=== PATIENT | female | born 1955 | race Hispanic/Latino ===

== ENCOUNTER 2017-05-16 14:34 | Emergency (ER) | payer SELFPAY ==
[2017-05-16 14:44] VITALS: BMI 27.4
[2017-05-16 14:52] VITALS: BP 156/75; PULSE 82; RESP 18; TEMP 99; O2SAT 94
[2017-05-16] MEDS ORDERED: Sodium Chloride 0.9% 1,000 ML IV STA (15:00)
[2017-05-16 15:15] LABS: BASO # 0.01 K/mm3 (0.0-2.0); BASO % 0.1 % (0.0-3.0); EOS % 0.2 % (1.5-5.0); GRAN # 6.35 (1.4-6.5); GRAN % 66.2 % (50.0-68.0); HEMATOCRIT 39.9 % (36.0-48.0); LYMPH # 2.5 (1.2-3.4); LYMPH % 26.5 % (22.0-35.0); MEAN CELL VOLUME 92.4 fl (80.0-105.0); MEAN CORPUSCULAR HEMOGLOBIN 29.6 pg (25.0-35.0); MEAN CORPUSCULAR HGB CONC 32.1 g/dl (31.0-37.0); MEAN PLATELET VOLUME 9.8 fl (7.0-11.0); MONO # 0.7 (0.1-0.6); RED CELL DISTRIBUTION WIDTH 14.1 % (11.5-14.5); WHITE BLOOD COUNT 9.6 10^3/ul (4.5-11.0)
[2017-05-16 15:20] LABS: ALKALINE PHOSPHATASE 94 U/L (38-126); ALT/SGPT 39 U/L (7-56); AST/SGOT 30 U/L (14-36); BILIRUBIN,TOTAL 1.3 mg/dL (0.2-1.3); BLOOD UREA NITROGEN 11 mg/dL (7-21); CARBON DIOXIDE 25 mmol/L (21-33); CHLORIDE 97 mmol/L (98-107); GFR AFRICAN-AMERICAN > 60; GLUCOSE,RANDOM 101 mg/dL (70-110); POTASSIUM 4.5 mmol/L (3.6-5.0); SODIUM 136 mmol/L (132-148); TOTAL PROTEIN 8.4 g/dL (5.8-8.3)
--- NOTE | 2017-05-16 15:20 | ED PDOC ---
Arrival/HPI - General Chief Complaint: GI Problem Time Seen by Provider: 05/16/17 14:55 Historian: Patient, Family - History of Present Illness Narrative History of Present Illness (Text): 05/16/17 14:56 A 62 year old female smoker, whose past medical history includes premature ventricular contractions, hypertension, pneumonia, and gallbladder removal, presents to the emergency department with complaints of being sick for 9 days. The patient states she has had diarrhea, vomiting, congestion, cough, congestion with green sputum, fever, and appetite changes, which began 9 days ago after sick contact with granddaughter. The patient and her family report that these same symptoms have circulated through ever member of the house hold. The patient states her fever has been measured from 101-102. The patient's diarrhea comes with abdominal pain and gas pain. The patient admits to being seen before and has been on a Z-pack, but has not had any relief. The patient denies any bloody stools, shortness of breath, dysuria, or any other complaints at this time. Time/Duration: > week (x 9 days ) Symptom Course: Unchanged Quality: Cramping, Gas Like Activities at Onset: Light Context: Home Past Medical History - Provider Review Nursing Documentation Reviewed: Yes - Infectious Disease Hx of Infectious Diseases: None - Tetanus Immunization Tetanus Immunization: Unknown - Cardiac Hx Cardiac Arrhythmia: Yes (PVC) - HEENT Hx Cataracts: Yes (cataract sx) - Psychiatric Hx Depression: No Hx Emotional Abuse: No Hx Physical Abuse: No Hx Substance Use: No - Surgical History Hx Cataract Extraction: Yes - Anesthesia Hx Anesthesia: Yes Hx Anesthesia Reactions: No Hx Malignant Hyperthermia: No - Suicidal Assessment Feels Threatened In Home Enviroment: No Family/Social History - Physician Review Nursing Documentation Reviewed: Yes Family/Social History: No Known Family HX, Unknown Family HX Smoking Status: Light Smoker < 10 Cigarettes Daily Hx Alcohol Use: No Hx Substance Use: No Allergies/Home Meds Allergies/Adverse Reactions: Allergies No Known Allergies Allergy (Verified 06/29/13 07:52) Home Medications: Home Meds Medication Instructions Recorded Confirmed Atenolol [Tenormin] 1 tab PO BID 06/29/13 05/16/17 Verapamil [Calan Tab] 1 tab PO BID 05/16/17 05/16/17 Review of Systems - Physician Review All systems were reviewed & negative as marked: Yes - Review of Systems Constitutional: Fevers Respiratory: Cough, Sputum. absent: SOB Gastrointestinal: Abdominal Pain, Diarrhea, Vomiting, Appetite Changes. absent : Other (bloody stool ) Genitourinary Female: absent: Dysuria Physical Exam Vital Signs Reviewed: Yes Vital Signs Temp Pulse Resp BP Pulse Ox 05/16/17 14:49 99.0 F 82 18 156/75 H 94 L Temperature: Afebrile Blood Pressure: Hypertensive Pulse: Regular Respiratory Rate: Apneic Appearance: Positive for: Well-Appearing, Non-Toxic, Comfortable Pain Distress: None Mental Status: Positive for: Alert and Oriented X 3 - Systems Exam Head: Present: Atraumatic, Normocephalic Pupils: Present: PERRL Extroacular Muscles: Present: EOMI Conjunctiva: Present: Normal Mouth: Present: Moist Mucous Membranes Neck: Present: Normal Range of Motion Respiratory/Chest: Present: Clear to Auscultation, Good Air Exchange. No: Respiratory Distress, Accessory Muscle Use Cardiovascular: Present: Regular Rate and Rhythm, Normal S1, S2. No: Murmurs Abdomen: Present: Normal Bowel Sounds. No: Tenderness, Distention, Peritoneal Signs Back: Present: Normal Inspection Upper Extremity: Present: Normal Inspection. No: Cyanosis, Edema Lower Extremity: Present: Edema, Other (varicose veins) Neurological: Present: GCS=15, CN II-XII Intact, Speech Normal Skin: Present: Warm, Dry, Normal Color. No: Rashes Psychiatric: Present: Alert, Oriented x 3, Normal Insight, Normal Concentration Medical Decision Making ED Course and Treatment: 05/16/17 15:00 Impression: A 62 year old female with vomiting and diarrhea. Differential Diagnosis included but are not limited to: Plan: -- Labs -- Chest X-ray -- Pepcid, IV fluids -- Reassess and disposition Progress Notes: - Lab Interpretations Lab Results: 05/16/17 15:00 05/16/17 15:00 Lab Results 05/16/17 15:00: Sodium 136, Potassium 4.5, Chloride 97 L, Carbon Dioxide 25, Anion Gap 19, BUN 11, Creatinine 0.6 L, Est GFR ( Amer) > 60, Est GFR ( Non-Af Amer) > 60, Random Glucose 101, Calcium 10.0, Total Bilirubin 1.3, AST 30 , ALT 39, Alkaline Phosphatase 94, Total Protein 8.4 H, Albumin 4.4, Globulin 4.0, Albumin/Globulin Ratio 1.1 05/16/17 15:00: WBC 9.6, RBC 4.32, Hgb 12.8, Hct 39.9, MCV 92.4, MCH 29.6, MCHC 32.1, RDW 14.1, Plt Count 379, MPV 9.8, Gran % 66.2, Lymph % (Auto) 26.5, [place] % (Auto) 7.0 H, Eos % (Auto) 0.2 L, Baso % (Auto) 0.1, Gran # 6.35, Lymph # 2.5 , [place] # 0.7 H, Eos # 0.0, Baso # 0.01 - RAD Interpretation Narrative RAD Interpretations (Text): 05/16/17 15:55 Adenopathy and questionable mass. Need for follow up with PMD and consideration for further evaluation including consideration of CT scan discussed and importance emphasized with patient and all family members present. All verbalize and confirm understanding. 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 - Medication Orders Current Medication Orders: Sodium Chloride (Sodium Chloride 0.9%) 1,000 mls @ 1,000 mls/hr IV .Q1H STA Stop: 05/16/17 15:59 Last Admin: 05/16/17 15:09 Dose: 1,000 mls/hr eMAR Start Stop Document 05/16/17 15:09 TA (Rec: 05/16/17 15:09 TA [id number]) Intravenous Solution Start Date 05/16/17 Start Time 15:09 Discontinued Medications Famotidine (Pepcid) 20 mg IVP STAT STA Stop: 05/16/17 15:01 Last Admin: 05/16/17 15:11 Dose: 20 mg IVP Administration Document 05/16/17 15:11 TA (Rec: 05/16/17 15:11 TA [id number]) Charges for Administration # of IVP Administrations 1 - Scribe Statement The provider has reviewed the documentation as recorded by the Martaibmyla Cortez Provider Scribe Attestation: All medical record entries made by the Scribe were at my direction and personally dictated by me. I have reviewed the chart and agree that the record accurately reflects my personal performance of the history, physical exam, medical decision making, and the department course for this patient. I have also personally directed, reviewed, and agree with the discharge instructions and disposition. Disposition/Present on Arrival - Present on Arrival Any Indicators Present on Arrival: No History of DVT/PE: No History of Uncontrolled Diabetes: No Urinary Catheter: No History of Decub. Ulcer: No History Surgical Site Infection Following: None - Disposition Have Diagnosis and Disposition been Completed?: Yes Diagnosis: Gastroenteritis, Cough present for greater than 3 weeks, Hilar adenopathy Disposition: HOME/ ROUTINE Disposition Time: 16:00 Patient Problems: Current Active Problems Problem Status Onset Cough present for greater than 3 weeks Acute Gastroenteritis Acute Hilar adenopathy Acute Condition: STABLE Additional Instructions: Must follow up with your doctor for further evaluation of chest x-ray findings. Consider pulmonary evaluation including CT scan to further define x-ray findings. Prescriptions: Promethazine DM [Phenergan DM Syrup] 10 ml PO TID PRN #120 dose PRN Reason: Cough Referrals: Pascual Stoll MD [Primary Care Provider] - Follow up with primary Forms: [employer] (Telugu)
[2017-05-16 15:21] LABS: ALB/GLOB RATIO 1.1 (1.1-1.8)
--- NOTE | 2017-05-16 15:49 | RAD ---
HISTORY: Cough. Portable study 15:32. COMPARISON: 03/19/2015. FINDINGS: LUNGS: No active pulmonary disease. PLEURA: No significant pleural effusion identified, no pneumothorax apparent. CARDIOVASCULAR: No radiographic findings to suggest acute or significant cardiovascular disease. OSSEOUS STRUCTURES: No significant abnormalities. VISUALIZED UPPER ABDOMEN: Normal. OTHER FINDINGS: None. IMPRESSION: No active disease. No significant interval change compared to the prior examination(s).
== END 2017-05-16 16:00 | disposition home or self-care (01) ==
LOC: ED 14:34
DX: K52.9 Noninfective gastroenteritis and colitis, unspecified (principal); R59.0 Localized enlarged lymph nodes; R05 Cough; I10 Essential (primary) hypertension; F17.210 Nicotine dependence, cigarettes, uncomplicated
CPT/HCPCS: 71010; 80053; 85025; 96374; 99283; J7040